=== PATIENT | male | born 1995 | race Caucasian/White ===

== ENCOUNTER 2017-10-03 11:21 | Emergency (ER) | payer OTHER ==
[~2017-10-03] VITALS: Ht 162.6 cm; Wt 64.9 kg
[2017-10-03 11:25] VITALS: Ht 162.6 cm; Wt 64.9 kg
[2017-10-03 14:07] VITALS: BP 103/46
== END 2017-10-03 14:05 | disposition home or self-care (01) ==
LOC: ED 11:21
DX: J11.1 Influenza due to unidentified influenza virus with other respiratory manifestations (principal); G43.909 Migraine, unspecified, not intractable, without status migrainosus
CPT/HCPCS: J2405; Q0162

== ENCOUNTER 2018-03-04 22:13 | Inpatient (IN) | payer OTHER ==
[~2018-03-04] VITALS: Ht 162.6 cm; Wt 59.0 kg
[2018-03-05 02:21] LABS: BASOPHIL % 0.2 % (0-2); PLATELET COUNT 217 x10^3mcL (130-400); RED CELL DISTRIBUTION WIDTH 12.7 % (11.5-14.5)
[2018-03-05 02:24] LABS: CALCIUM 9.5 mg/dL (8.5-10.1); CARBON DIOXIDE 30.4 mmol/L (21-32); CHLORIDE SERUM 102 mmol/L (98-107); CREATININE SERUM 0.8 mg/dL (0.7-1.3); GFR1 > 60 mL/min; GLUCOSE SERUM 126 mg/dL (74-106); POTASSIUM SERUM 3.5 mmol/L (3.5-5.1); SODIUM SERUM 138 mmol/L (136-145)
[2018-03-05 02:28] LABS: ALBUMIN 4.4 g/dL (3.4-5.0); ALKALINE PHOSPHATASE 90 U/L (46-116); ALT/SGPT 23 U/L (16-63); AMYLASE 44 U/L (25-115); AST/SGOT 17 U/L (15-37); BILIRUBIN TOTAL 0.76 mg/dL (0.20-1.00); LIPASE 181 IU/L (73-393); TOTAL PROTEIN, SERUM 7.9 g/dL (6.4-8.2)
[2018-03-05 03:23] VITALS: BP 112/52
[2018-03-05 04:09] LABS: CHOLESTEROL/HDL RATIO 3.2; MAGNESIUM 2.1 mg/dL (1.8-2.4); PHOSPHOROUS 4.5 mg/dL (2.5-4.9)
[2018-03-05 04:12] LABS: T3 TOTAL 1.08 ng/mL
[2018-03-05 04:41] LABS: FREE T4 1.01 ng/dL (0.76-1.46); FREE THYROXINE INDEX 2.6 ug/dL (1.4-4.5); T4(THYROXINE) 7.1 ug/dL (4.7-13.3)
[2018-03-05 06:02] VITALS: BP 106/58
[2018-03-05 08:04] LABS: UA SPECIFIC GRAVITY >=1.030 (1.005-1.035); microscopic required? YES; urine erythrocyte NEGATIVE (NEGATIVE)
[2018-03-05 08:18] LABS: AMPHETAMINE QUAL UR NONE DETECTED (NEG <=1000)
[2018-03-05] MEDS ORDERED: PSYLLIUM FIBE0.52 GM PO (12:06)
[2018-03-05 12:36] VITALS: BP 106/58
[2018-03-05 12:48] LABS: BASOPHIL % 0.4 % (0-2); PLATELET COUNT 187 x10^3mcL (130-400); RED CELL DISTRIBUTION WIDTH 12.9 % (11.5-14.5)
[2018-03-05 12:54] LABS: CALCIUM 8.3 mg/dL (8.5-10.1); CARBON DIOXIDE 27.4 mmol/L (21-32); CHLORIDE SERUM 109 mmol/L (98-107); CREATININE SERUM 0.8 mg/dL (0.7-1.3); GFR1 > 60 mL/min; GLUCOSE SERUM 86 mg/dL (74-106); POTASSIUM SERUM 4.1 mmol/L (3.5-5.1); SODIUM SERUM 144 mmol/L (136-145)
== END 2018-03-05 13:15 | disposition home or self-care (01) | DRG 247 ==
LOC: ED 22:13 → DU 03-05 02:18 → MU 03-05 11:05
PROVIDERS: Emergency Medicine; Family Medicine; Student in an Organized Health Care Education/Training Program
DX: K56.699 Other intestinal obstruction unspecified as to partial versus complete obstruction (principal); N17.0 Acute kidney failure with tubular necrosis; K21.9 Gastro-esophageal reflux disease without esophagitis; E78.5 Hyperlipidemia, unspecified; E86.0 Dehydration
CPT/HCPCS: 82962; 83880; 84439; J0780; J1885; J2765; J7030; Q0092; Q0162; Q9967

== ENCOUNTER 2018-12-15 00:28 | Emergency (ER) | payer OTHER ==
[~2018-12-15] VITALS: Ht 160 cm; Wt 62.1 kg
[~2018-12-15 00:28] MED LIST: PSYLLIUM FIBE0.52 GM PO
[2018-12-15 00:34] VITALS: Ht 160 cm; Wt 62.1 kg
[2018-12-15 03:12] VITALS: BP 122/71
== END 2018-12-15 03:12 | disposition home or self-care (01) ==
LOC: ED 00:28
DX: G44.209 Tension-type headache, unspecified, not intractable (principal)
CPT/HCPCS: J1885; Q0162

== ENCOUNTER 2019-04-30 23:32 | Inpatient (IN) | payer OTHER ==
[~2019-04-30] VITALS: Ht 167.6 cm; Wt 64.9 kg
[2019-04-30 23:37] VITALS: Ht 167.6 cm; Wt 64.9 kg
--- NOTE | 2019-05-01 00:11 | NUR ---
PT PRESENTS TO ED WITH C/O MUQ PAIN SINCE 6PM THIS EVENING. PT STTES THAT HE HAS A HISTORY OF BOWEL OBSTRUCTIOSNS HOWEVER WHEN HE USUALLY HAS BOWEL OBSTRUCTIONS HE IS UNABLE TO GO POOP. BUT THIS TIME HE IS STILL GOING POOP FINE. PT DENEIS ANY N/V/D/C AT THIS TIME. PT CONNECTED TO FULL CM, PULSE OX MONITORS. MOM AT BEDSIDE. PT AXOX 4. RESP ARE EQUAL AND UNLABORED. ABDOMEN IS SOFT/FLAT AND TENDER UPON PALPATION. PT APPEARS TO BE IN A LOT OF PAIN WITH AUDIBLE PANTING AND FIDGITING IN BED. AWAITING MSE AT THIS TIME
[2019-05-01 00:17] LABS: BASOPHIL % 0.2 % (0-2); PLATELET COUNT 196 x10^3mcL (130-400); RED CELL DISTRIBUTION WIDTH 12.8 % (11.5-14.5)
[2019-05-01 00:28] LABS: CALCIUM 9.6 mg/dL (8.5-10.1); CARBON DIOXIDE 32.5 mmol/L (21-32); CHLORIDE SERUM 103 mmol/L (98-107); GFR1 > 60 mL/min; GLUCOSE SERUM 105 mg/dL (74-106); POTASSIUM SERUM 3.9 mmol/L (3.5-5.1); SODIUM SERUM 144 mmol/L (136-145)
[2019-05-01 00:44] LABS: ALBUMIN 4.6 g/dL (3.4-5.0); ALKALINE PHOSPHATASE 81 U/L (46-116); ALT/SGPT 32 U/L (16-63); AST/SGOT 17 U/L (15-37); BILIRUBIN TOTAL 0.5 mg/dL (0.20-1.00); LIPASE 208 IU/L (73-393); TOTAL PROTEIN, SERUM 8.1 g/dL (6.4-8.2)
--- NOTE | 2019-05-01 01:58 | NUR ---
RECEIVED PT FROM ED, ACCOMPANIED BY NURSE. PT AOX4, DENIES BECK/DIZZINESS. PT C/O ABD PAIN, 8/10, SHARP/STABBING IN NATURE. PT REPORTS EATING 4 TACOS (GREASY) AT 5PM AND AT 9PM HE HAD PAIN. PT DRANK WATER SINCE IT USUALLY HELPS. WATER DID NOT HELP. AT 11:15 APPROX, PT REPORTS 10/10 PAIN, UNBEARABLE IN THE RT ABD, WITH ASSOCIATED NAUSEA. UNRELIEVED BY TRYING TO HAVE A BM/UNABLE TO VOMIT. PT REPORTS HAVING A BM YESTERDAY 04/30, NORMAL. DENIES N/V/D. ABD ROUND/FIRM. PT HAD TENDERNESS TO PALPATION TO THE LEFT ABD. PT REPORTS A PMH OF PREMATURE (BORN AT 5 MONTHS) WHICH RESULTED IN UNDERDEVELOPED BOWEL REQUIRING A "PLASTIC TUBE DOWN THROAT, STRAIGHT DOWN". PT UNABLE TO ELABORATE FURTHER SINCE IT WAS WHEN HE WAS A BABY. PT REPORTS HX OF SBO. PT REPORTS INTOLERANCE OF STARCHY/CARB RICH FOODS. PT DENIES ISSUES SWALLOW. RESP EVEN AND UNLABORED ON RA, DENIES SOB. IV SITE TO THE [facility], SALINE LOCKED AT THIS TIME. ALL COMFORT AND SAFETY MEASURES PROVIDED FOR, CALL LIGHT WITHIN REACH, BED IN LOWEST POSITION, WILL CONTINUE TO MONITOR.
[2019-05-01 02:21] VITALS: BP 119/77
[2019-05-01 02:24] LABS: PHOSPHOROUS 4.6 mg/dL (2.5-4.9)
--- NOTE | 2019-05-01 05:05 | NUR ---
PT RESTED IN INTERVALS DURING SHIFT, NO ACUTE CHANGES OCCURRING OVERNIGHT. PT DENIES HAVING A BOWEL MOVEMENT SINCE ADMISSION, PT REPORTS PAIN UNDER CONTROL AT THIS TIME. PT REMAINS NPO DURING SHIFT. IV SITE REMAINS PATENT TO LFA, NS @ 100ML/HR. ALL COMFORT AND SAFETY MEASURES PROVIDED FOR, CALL LIGHT WITHIN REACH, BED IN LOWEST POSITION, WILL CONTINUE TO MONITOR.
[2019-05-01 06:16] VITALS: BP 113/60
[2019-05-01 06:39] LABS: BASOPHIL % 0.3 % (0-2); PLATELET COUNT 174 x10^3mcL (130-400); RED CELL DISTRIBUTION WIDTH 12.9 % (11.5-14.5)
--- NOTE | 2019-05-01 07:15 | NUR ---
RECEIVED BEDSIDE REPORT FROM BODY ROLLING MACHINE TENDER NURSE AT THIS TIME. PATIENT RESTING COMFORTABLY IN BED. NO APPARENT DISTRESS OR DISCOMFORT NOTED. BREATHING EVEN AND UNLABORED. NO RESPIRATORY DISTRESS NOTED. PATIENT DENIES SHORTNESS OF BREATH. PATIENT DENIES CHEST PAIN/PRESSURE AT THIS TIME. IV PATENT AND INTACT. ALL QUESTIONS AND CONCERNS ADDRESSED. ALL NEEDS ATTENDED TO. WILL CONTINUE TO MONITOR
--- NOTE | 2019-05-01 07:34 | NUR ---
ENDORSED ALL CARE TO DAYSHIFT NURSE, NO ACUTE DISTRESS NOTED. ALL COMFORT AND SAFETY MEASURES PROVIDED FOR, ALL QUESTIONS AND CONCERNS ADDRESSED, CALL LIGHT WITHIN REACH, BED IN LOWEST POSITION.
[2019-05-01 09:15] VITALS: BP 120/69
[2019-05-01 10:44] LABS: UA SPECIFIC GRAVITY 1.025 (1.005-1.035); microscopic required? YES; urine erythrocyte NEGATIVE (NEGATIVE)
[2019-05-01 10:55] LABS: AMPHETAMINE QUAL UR NONE DETECTED (See below)
--- NOTE | 2019-05-01 10:59 | NUR ---
ALL MORNING MEDICATIONS ADMINISTERED. PATIENT TOLERATED WELL. NO ADVERSE EFFECTS NOTED. NO APPARENT DISTRESS OR DISCOMFORT NOTED. ALL NEEDS ATTENDED TO. WILL CONTINUE TO MONITOR
--- NOTE | 2019-05-01 11:13 | NUR ---
PATIENT AMBULATING HALLWAYS AT THIS TIME. TOLERATING ACTIVITY WELL. NO APPARENT DISTRESS OR DISCOMFORT NOTED. ALL NEEDS ATTENDED TO. WILL CONTINUE TO MONITOR
[2019-05-01 11:44] LABS: CALCIUM 8.8 mg/dL (8.5-10.1); CARBON DIOXIDE 25.3 mmol/L (21-32); CHLORIDE SERUM 106 mmol/L (98-107); CREATININE SERUM 0.9 mg/dL (0.7-1.3); GFR1 > 60 mL/min; GLUCOSE SERUM 96 mg/dL (74-106); PHOSPHOROUS 4.5 mg/dL (2.5-4.9); POTASSIUM SERUM 3.8 mmol/L (3.5-5.1); SODIUM SERUM 142 mmol/L (136-145)
--- NOTE | 2019-05-01 13:16 | NUR ---
DR LAZAR AT BEDSIDE TO REVIEW POC WITH PATIENT AT THIS TIME. ALL QUESTIONS AND CONCERNS ADDRESSED. ALL NEEDS ATTENDED TO. WILL CONTINUE TO MONITOR
--- NOTE | 2019-05-01 13:46 | NUR ---
PATIENT VOMITING AT THIS TIME. PATIENT MEDICATED WITH ZOFRAN PRN. NO ADVERSE EFFECTS NOTED. ALL NEEDS ATTENDED TO. WILL CONTINUE TO MONITOR
--- NOTE | 2019-05-01 16:58 | NUR ---
SPOKE TO DR WHITE REGARDING PATIENT VOMITING AT THIS TIME. INFORMED DR WHITE PATIENT HAS ZOFRAN IVP PRN ON HIS EMAR BUT MEDICATION ONLY WORKS FOR 2 HOURS BEFORE PATIENT IS VOMITING. REQUESTING REGLAN BE ORDERED TO BE INTERCHANGABLE WITH ZOFRAN WHEN PATIENT HAS NAUSEA/VOMITING. PER DR WHITE, HE WILL ORDER REGLAN IVP PRN. AWAITING ORDER AND WILL MEDICATE PATIENT WHEN AVAILABLE. ALL NEEDS ATTENDED TO. WILL CONTINUE TO MONITOR
[2019-05-01 17:21] VITALS: BP 105/55
--- NOTE | 2019-05-01 17:45 | NUR ---
PATIENT VOMITING AT THIS TIME. PATIENT MEDICATED WITH ZOFRAN PRN. PATIENT TOLERATED WELL. NO ADVERSE EFFECTS NOTED. ALL NEEDS ATTENDED TO. WILL CONTINUE TO MONITOR
--- NOTE | 2019-05-01 18:34 | NUR ---
PATIENT RESTING COMFORTABLY IN BED AT THIS TIME. NO APPARENT DISTRESS OR DISCOMFORT NOTED. IV PATENT AND INTACT. ALL QUESTIONS AND CONCERNS ADDRESSED. ALL NEEDS ATTENDED TO. SAFETY PRECAUTIONS MAINTAINED. WILL ENDORSE ALL CARE TO ALPINE GUIDE NURSE
--- NOTE | 2019-05-01 19:20 | NUR ---
RECEIVED PT RESTING IN BED, PT HAS INTERMITTENT VOMITING. AOX4, DENEIS BECK/DIZZINESS. MEDSURG PT, DENIES CP. PT HAD SMALL BOWEL FOLLOW THROUGH DEMONSTRATING SBO. PT HAS BEEN NPO ALL DAY. PT VOMITING CONTRAST. PROVIDED EDUATION IN REGARDS TO RISK/BENEFITS OF NGT. PT STILL REFUSING AT THIS TIME. WILL CONTINUE TO EDUCATE. IV SITE REMAINS PATENT TO LFA, NS @ 100ML/HR. NO REDNESS, SWELLING OR PAIN NOTED. ALL COMFORT AND SAFETY MEASURES PROVIDED FOR, CALL LIGHT WITHIN REACH, BED IN LOWEST POSITION, WILL CONTINUE TO MONITOR.
--- NOTE | 2019-05-01 19:45 | NUR ---
MEDICATED PT WITH REGLAN FOR INTERMITTENT NAUSEA + VOMITING. PT HAS SMALL BOWEL FLOLLOW THROUGH THIS AFTERNOON WHICH DEMONSTRATES SBO, PT VOMITING THE CONTRAST. PT VOMITING BILE YELLOW IN COLOR. EDUCATED PT IN REGARDS TO THE PURPOSE OF THE NG TUBE, ALTHOUGH PT STILL RESISTENT. FAMILY AT BEDSIDE AND UPDATED IN REGARDS TO PLAN OF CARE. FEMALE FAMILY MEMBER INSISTING PT ALLOW THE NG TUBE SINCE THATS THE APPROPRIATE TX FOR SBO. WILL CONTINUE TO PROVIDE EDUCATION AND MONITOR. CALL LIGHT WITHIN REACH, BED IN LOWEST POSITION, WILL CONTINUE TO MONITOR.
[2019-05-01 20:41] VITALS: BP 111/47
--- NOTE | 2019-05-01 23:15 | NUR ---
INSERTED 14 TOGOLESE NGT TO RT NARES, PT TOLERATED THE INSERTION FAIR. WILL ORDER STAT KUB TO VERIFY PLACEMENT. PT CALM AND COOPERATIVE WITH CARE AT THIS TIME. MOTHER REMAINING AT BEDSIDE.
[2019-05-02 05:06] VITALS: BP 116/66
--- NOTE | 2019-05-02 05:10 | NUR ---
PT RESTED IN INTERVALS DURING SHIFT, NO ACUTE CHANGES OCCURRING OVERNIGHT. PT NOW WITH NGT TO RT NARES 14 SRI LANKAN CONNECTED TO LOW INTERMITTENT SUCTION. TUBING OF NGT WITH DARK OUTPUT, HAS NOT REACH THE CANISTER FOR EMPTYING. UNABLE TO MEASURE OUTPUT D/T OUTPUT REMAINING IN TUBING. WILL ENDORSE COLOR AND SCANT AMOUNT FROM NGT AT THIS TIME. PT HAS NOT VOMITING SINCE NGT IN PLACE. PT HAS REMAINED NPO, IV SITE REMAINS PATENT TO LFA, NS @ 100ML/HR. NO REDNESS, SWELLING OR PAIN NOTED. ALL COMFORT AND SAFETY MEASURES PROVIDED FOR, CALL LIGHT WITHIN REACH, BED IN LOWEST POSITION, WILL CONTINUE TO MONITOR.
[2019-05-02 06:33] LABS: BASOPHIL % 0.3 % (0-2); PLATELET COUNT 153 x10^3mcL (130-400); RED CELL DISTRIBUTION WIDTH 13.1 % (11.5-14.5)
[2019-05-02 06:48] LABS: CALCIUM 8.2 mg/dL (8.5-10.1); CARBON DIOXIDE 23.7 mmol/L (21-32); CHLORIDE SERUM 109 mmol/L (98-107); CREATININE SERUM 0.9 mg/dL (0.7-1.3); GFR1 > 60 mL/min; GLUCOSE SERUM 93 mg/dL (74-106); POTASSIUM SERUM 3.6 mmol/L (3.5-5.1); SODIUM SERUM 145 mmol/L (136-145)
--- NOTE | 2019-05-02 07:42 | NUR ---
ENDORSED ALL CARE TO DAYSHIFT NURSE, NO ACUTE DISTRESS NOTED. ALL QUESTIONS AND CONCERNS ADDRESSED, CALL LIGHT WITHIN REACH, BED IN LOWEST POSITION.
--- NOTE | 2019-05-02 07:43 | NUR ---
RECEIVED HAND OFF REPORT FROM NIGHT NURSE. PATIENT LAYING SUPINE IN BED WITH NO COMPLAINTS. ALERT AND ORIENTED. WITH NG TO RIGHT NARE TO LOW INTERMITENT SUCTION. DARK DRAINAGE IN TUBE BUT NONE HAS REACHED SUCTION CANISTER. PATIENT REPORTS PASSING GAS BUT NO NEED FOR BOWEL MOVEMENT YET. IV TO LFA INFUSING WELL. CALL LIGHT WITHIN REACH, FAMILY IN ROOM. WILL CONTINUE TO MONITOR
[2019-05-02 08:59] VITALS: BP 111/60
--- NOTE | 2019-05-02 09:15 | NUR ---
PATIENT UNABLE TO TAKE PO MEDICAITON DUE TO SBO AND NG TUBE TO LIS. PATIENT COMPLAINING OF HEAD AND STOMACH PAIN. ADMINISTERED DILAUDID PER MAR. WILL REASSESS PAIN
--- NOTE | 2019-05-02 10:08 | NUR ---
ASSISTED PATIENT TO STAND AND URINATE. NO URGE TO HAVE BOWEL MOVEMENT YET
--- NOTE | 2019-05-02 12:30 | NUR ---
patient visualized sitting up at side of bed wth at [facility]. no complaints at this time. call light wihtinr each. will continue to monitor
--- NOTE | 2019-05-02 12:31 | NUR ---
PATIENT OBSERVED LAYING SUPINE IN BED, LIGHTS OFF WITH MOTHER AT BEDSIDE. PATIENT HAD NO COMPLAINTS AT THIS TIME. CALL LIGHT IS WITHIN REACH.
--- NOTE | 2019-05-02 13:23 | NUR ---
EDUCATED PATIENT ABOUT PURPOSE OF NGTUBE AND TREATMENT OF SMALL BOWEL OBSTRUCTION. DUE TO MEDICAL HISTORY PATIENT HAS FREQUIETNT BOWEL OBSTRUCTIONS. SO FAR 100 MLS OF DARK BLACK FLUID REMOVED VIA NG TUBE SUCTION. ADDITIONAL VISITOR AT BEDSIDE. CALL LIGHT WITHIN REACH
--- NOTE | 2019-05-02 14:59 | NUR ---
Initial Nutrition Assessment: (221-B) CARLA LEDESMA 24M Dx: SBO PMHx: Mult SBOs PSHX: Bowel surgery Labs: Cl 109 H, BUN 20 H, HCT 41 L Meds: Colace, Reglan, Zofran Diet: NPO (r/t SBO) PO intake since admission: 0% (NPO since admit 05/01) Ht: 66in Wt: 143# BMI: 23.1 Bed scale: 147.7# IBW: 142# %IBW: 101% UBW: 138# Age: 24 Food Allergies: NKFA Skin: Wally: 20 Edema: None noted GI: Dx SMO, pain to abd at times, reports passing gas but no BM yet Last BM: 04/30 Note (05/02): Noted NGT placed 05/01 overnight @2315. Visited pt bedside, spoke w/ pt and pt's mother. Pt states no c/o abd pain at this time. Pt has not eaten since admission, but states appetite is good, but understand he is not supposed to eat any foods right now; noted pt eating ice chips during interview. Pt states believes he should eat less greasy foods at home. Pt has no further questions at this time. Spoke w/ Dr Emanuel regarding diet order when started on PO diet, confirmed. Problem with: N/V/D/C: Constipated Problems with: Chewing: No Swallowing: No Current appetite: Good Recent wt change: per pt, +5# %wt change: 3.6% Vitamin/Supplement use: No Special diet at home: Regular Physical activity: N/A Nutrition education given (specify specific nutrition education and handout given): None given at this time. Food-drug interactions? Education given? None given at this time. Estimated Nutritional Needs Based on current body weight (65 kg) Energy: 0906-5312 kcal/day (35-40 kcal/kg for maintenance) Protein: 65-78 g/day (1.0-1.2 g/kg for maintenance) Fluid: 6417-9965 mL/day (1 mL/kcal) or per MD Nutrition Diagnosis: Altered GI function r/t SBO AEB NPO since admit, Bowel surgery, Hx multiple SBOs Intervention 1. When appropriate to start PO diet per MD, start pt on clear liquid diet, advance as tolerated to goal of low fat diet. Monitor/Evaluate Goal: PO intake at least 75% of estimated needs Monitor: PO intake, Labs, GI function F/U in 3-5 days as moderate risk 05/05-05/07
--- NOTE | 2019-05-02 14:59 | NUR ---
Recommendations: 1. When appropriate to start PO diet per MD, start pt on clear liquid diet, advance as tolerated to goal of low fat diet.
--- NOTE | 2019-05-02 15:36 | NUR ---
PATIENT COMPLAINING OF NAUSEA AND ABD PAIN. ADMINISTERED MEDICATIONS PER MAR. PATIENT COMPLAINING OF FEELING HOT. NO FEVER PRESENT. AC TURNED ON IN ROOM AND ICE PACK GIVEN FOR HEAD/NECK. FAMILY MEMBERS AT BEDSIDE. UPDATED FAMILY ON PLAN OF CARE AND CURENT TREATMENTS. CALL LIGHT WITHIN REACH
[2019-05-02 16:09] VITALS: BP 130/69
--- NOTE | 2019-05-02 16:44 | NUR ---
PATIENT COMPLAINGING OF NAUSEA. ADMINISTERED REGLAN PER DEC. PATIENT REQUESTED TO WALK IN HALWAY WITH FATHER. DISCONTECTED FROM SUCTION. NG TUBE PINNED TO GOWN. PATIENT UP AND WALKING IN FREDA;WAY. GAIT STEADY
--- NOTE | 2019-05-02 17:10 | NUR ---
PATIENT BACK IN BED AFTER AMBULATING IN HALLWAY. PATIENT DENIES COMPLAINTS. RECONECTED NG TUBE TO LIS. CALL LIGHT WITHIN REACH. PATIENT SITTING SEMI-FOWLERS IN BED. FATHER AT BEDSIDE
--- NOTE | 2019-05-02 18:26 | NUR ---
PATIENT COMPLAINING OF PAIN AT THIS TIME, SLIGHT NAUSEA. UNABLE TO MEDICATE PRN AT THIS TIME. PATIENT HELPED TO REPOSIITON, ICE CHIPS PROVIDED. CALL NILO GLASGOW, FATHER IN ROOM
--- NOTE | 2019-05-02 19:02 | NUR ---
RECEIVED PT FROM PREVIOUS SHIFT. AAO. ABLE TO MAKE NEEDS KNOWN. SPEECH CLEAR. MEDSURG. DENIES HEADACHE/DIZZINESS. C/O 9/10 ACHING ABD PAIN, WILL MEDICATE PER EMAR. NO C/O N/V. NG SECURED TO R NARE, LOW INTERMITTENT SUCTION, DARK RED/BROWN DRAINAGE IN COLLECTION CHAMBER. CALL LIGHT WITHIN REACH. SAFETY MEASURES IN PLACE. WILL CONTINUE TO MONITOR.
--- NOTE | 2019-05-02 19:51 | NUR ---
PT C/O 9/10 ACHING ABD PAIN, MEDICATED PER EMAR.
[2019-05-02 21:20] VITALS: BP 108/55
--- NOTE | 2019-05-02 23:22 | NUR ---
PT C/O 06/17 ABD PAIN, MEDICATED PER EMAR. PT DENIES N/V.
--- NOTE | 2019-05-03 06:08 | NUR ---
PT HAD RESTFUL NIGHT. NO CHANGES OVERNIGHT. ALL NEEDS MET AND ATTENDED TO. DENIES N/V. NG TUBE REMAINS SECURED TO R NARE, 150CC REMAINS IN COLLECTION CHAMBER, SAME AMOUNT BEGINNING OF SHIFT. IV SITE CDI, IVF INFUSING WELL, NO ERYTHEMA OR EDEMA. CALL LIGHT WITHIN REACH. SAFETY MEASURES IN PLACE. WILL ENDORSE CARE TO ONCOMING SHIFT.
--- NOTE | 2019-05-03 07:20 | NUR ---
BEDSIDE REPORT GIVEN TO LINDA GREER.
--- NOTE | 2019-05-03 07:30 | NUR ---
RECEIVED HAND OFF REPORT FROM NIGHT NURSE. PATIENT SLEEPING AT THIS TIME. NO OBVIOUS DISTRESS A TTHIS TIME. BREATHING STEADY. NG TUBE TO LEFT NARE SECURED WITH TAPE AND PINNED TO GOWN. DRAINAGE AT 150 IN CANISTER, NO CONVENTION PLANNER NIGHT. FAMILY MEMBER IN ROOM. CALL LIGHT WITHIN REACH
[2019-05-03 07:40] LABS: CALCIUM 8.6 mg/dL (8.5-10.1); CARBON DIOXIDE 25.9 mmol/L (21-32); CHLORIDE SERUM 106 mmol/L (98-107); CREATININE SERUM 0.8 mg/dL (0.7-1.3); GFR1 > 60 mL/min; GLUCOSE SERUM 75 mg/dL (74-106); POTASSIUM SERUM 3.4 mmol/L (3.5-5.1); SODIUM SERUM 142 mmol/L (136-145)
[2019-05-03 08:18] VITALS: BP 102/53
--- NOTE | 2019-05-03 08:19 | NUR ---
PATIENT COMPLAINING OF HEADACHE AND NAUSEA. ADMINISTERED MEDICATION PER DEC. NG TUBE CLAMPED PRIOR TO TYLENOL ADMINSITRATION AND WILL RELEASE AFTER 30MIN. PATIENT TOLERATING WELL. CALL LIGHT REMAINING WITHIN REACH
[2019-05-03 08:37] LABS: BASOPHIL % 0.1 % (0-2); PLATELET COUNT 150 x10^3mcL (130-400); RED CELL DISTRIBUTION WIDTH 12.7 % (11.5-14.5)
--- NOTE | 2019-05-03 09:23 | NUR ---
PATIENT LIS TURNED BACK ON PAIN REDUCED. SITTING UP IN BED WITH FAMILY AT BEDSIDE. CALL LIGHT WITHIN REACH
--- NOTE | 2019-05-03 10:50 | NUR ---
PATIENT RESTING IN BED AT THIS TIME, NO COMPLAINTS. CALL LIGHT WITHIN REACH, WILL CONTINUE TO MONITOR
--- NOTE | 2019-05-03 12:02 | NUR ---
DR CID. INFORMED DRS THAT DR LAZAR SAW PATIENT THIS AM AND RECOMMENDS TO HAVE NGTUBE REMOVED. WILL WAIT TO SEE IF ORDER IS PLACED.
--- NOTE | 2019-05-03 14:30 | NUR ---
DR CHURCH PUT IN ORDER FOR NGT REMOVAL, CLEAR LIQUID DIET TOLERATED AFTER REMOVAL. BROUGHT LAB WORK TO DR'S ATTENTION OF K+ 3.4. DR CHURCH ALREADY AWARE, NO NEW ORDERS AT THIS TIME. WILL CONTINUE TO MONITOR.
--- NOTE | 2019-05-03 14:43 | NUR ---
PER ORDER, REMOVED NG. PATIENT FRIGTENED OF PROCEDURE BUT COMPLIED, HEAD OF BED TO 90 DEGREES AND TUBE REMOVED IN FLUID MOTION. SLIGHT BLEEDING FROM RIGHT NOSTRIL. STOPPED AFTER 5 MIN OF PRESSURE. NO VOMITING. TOTAL OUTPUT FROM NG WAS MARKED ON CANISTER. 2OOML SINCE INSERTION. TUBE TIP INTACT. PATIENT PLACED ON CLEAR LIQUID DIET INSTRUCTED TO NOT EAT/DRINK TOO MUCH AT ONE TMIE. JUST SMALL SIPS RIGHT NOW. PATIENT VERBALIZED UNDERSTANDING. CALL LIGHT WITHIN REACH, WILL CONTINUE TO MONITOR
--- NOTE | 2019-05-03 15:32 | NUR ---
PATIENT TOLERATING NG REMOVAL WELL. DRANK SMALL SIPS OF CLEAR LIQUIDS. NO NAUSEA AT THIS TIME. WILL CONTINUE TO MONITOR CALL EMIL DAVIDSON REACH
[2019-05-03 16:55] VITALS: BP 93/53
--- NOTE | 2019-05-03 18:26 | NUR ---
PATIENT SITTIN IN BED AT THIS TIME WITH NO COMPLAINT OF PAIN. PATIENT DENIES N/V. STATED THAT HE HAD A BOWEL MOVEMENT AT 1800, SOFT AND REGULAR. WILL ENDORSE TO NIGHT NURSE
[2019-05-03 19:45] VITALS: BP 124/74
--- NOTE | 2019-05-03 19:45 | NUR ---
RECEIVED PT AWAKE ALERT AND VERBALLY RESPONSIVE.DENIES ABDOMINAL PAIN.NO N/V NOTED.ABDOMEN SOFT AND NON-DISTENDED.BM TODAY REPORTED.DENIES CHESTPAIN.BP 124/74 MMHG,HR 70.ENCOURAGED AMBULATION.WILL CONTINUE TO MONITOR.
--- NOTE | 2019-05-04 04:47 | NUR ---
PT SLEPT WELL ALL NIGHT WITH MOTHER AT BEDSIDE.DENIES ABDOMINLA PAIN.NO N/V NOTED.ALL NEEDS MET.WILL CONTINUE TO MONITOR.
[2019-05-04 05:43] VITALS: BP 118/62
[2019-05-04 06:38] LABS: BASOPHIL % 0.1 % (0-2); CALCIUM 8.5 mg/dL (8.5-10.1); CARBON DIOXIDE 28.5 mmol/L (21-32); CHLORIDE SERUM 108 mmol/L (98-107); CREATININE SERUM 0.9 mg/dL (0.7-1.3); GFR1 > 60 mL/min; GLUCOSE SERUM 85 mg/dL (74-106); PLATELET COUNT 152 x10^3mcL (130-400); POTASSIUM SERUM 3.6 mmol/L (3.5-5.1); RED CELL DISTRIBUTION WIDTH 12.8 % (11.5-14.5); SODIUM SERUM 145 mmol/L (136-145)
--- NOTE | 2019-05-04 07:52 | NUR ---
RECEIVED HAND OFF REPORT FROM NIGHT ALBA. NO ACUTE CHANGES LAST NIGHT. PATIENT FOUND SITTING SEMI-FOWLERS IN BED, AWAKE, ALERT IN NO APARENT DISTRESS. PATIENT DENEIS COMPLAINTS. STATED HE HASBEEN TOLERATING CLEAR LIQUIDS WELL. DENIES N/V. CALL LIGHT WITHIN REACH OF PATIENT, FAMILY MEMBER IN ROOM. WILL CONTINUE TO MONITOR
[2019-05-04 08:14] VITALS: BP 109/60
--- NOTE | 2019-05-04 09:46 | NUR ---
ADMINISTERED MEDICATION PER MAR. PATIENT REPORTED BOWEL MOVEMNT THIS MORNING. SOFT CONSISTANCY. REQUESTING TO TAKE STOOL SOFTENER NOW THAT SBO SEEMS TO HAVE RESOLVED. CALL LIGHT WITHIN REACH, FAMILY IN ROOM
--- NOTE | 2019-05-04 10:56 | NUR ---
PATIENT VISTED BY CARE TEAM. UPDATED PATIENT ON PLAN OF CARE. ADVANCING DIET AT [facility]. [facility] SOFT. PATIENT MAY BE DICHARGED THIS PM. PATIENT QUESTIONS ANSWERED BY DR CHURCH
[2019-05-04] MEDS ORDERED: ONDANSETRON4 M3 SL (15:42)
[2019-05-04 15:55] VITALS: BP 109/60
--- NOTE | 2019-05-04 16:56 | NUR ---
PATIENT DISCHARGE ORDERS IN. EFRAIN READY AND ASKING ABOUT DISCHARGE. REVEIW DISCHARGE INSTRUCTIONS WITH PATIENT WITH MOTHER PRESENT. MADE PATIENT AWARE OF FOLLOW UP APPOINTMENT, EFRAIN RECEIVED PRESCRIPTION AND OFF WORK ORDER. ANSWERED PATIENT QUESTIONS. REMOVED PATIENT IV. SITE WNL, CATH INTACT. PATIENT ASSITED OFF UNIT BY MONORAIL CAR OPERATOR WITH ALL BELONGING ON PERSON.
== END 2019-05-04 17:02 | disposition home or self-care (01) | DRG 247 ==
LOC: ED 23:32 → MU 05-01 01:16
PROVIDERS: Emergency Medicine; ADMIT General Practice
PROC: 0D9670Z Drainage of Stomach with Drainage Device, Via Natural or Artificial Opening (ICD-10-PCS; principal; 2019-05-02)
DX: K56.600 Partial intestinal obstruction, unspecified as to cause (principal); N17.0 Acute kidney failure with tubular necrosis; D72.829 Elevated white blood cell count, unspecified; G43.909 Migraine, unspecified, not intractable, without status migrainosus; E87.6 Hypokalemia
CPT/HCPCS: G0378; J1170; J1885; J2270; J2405; J2765; J3490; J7030; Q0092; Q9967

== ENCOUNTER 2019-08-21 16:18 | Inpatient (IN) | payer OTHER ==
[~2019-08-21] VITALS: Ht 160 cm; Wt 60.3 kg
[~2019-08-21 16:18] MED LIST changes: +ONDANSETRON4 M3 SL
[2019-08-21 16:33] VITALS: Ht 160 cm; Wt 60.3 kg
[2019-08-21 18:29] LABS: CALCIUM 9.7 mg/dL (8.5-10.1); CARBON DIOXIDE 32.2 mmol/L (21-32); CHLORIDE SERUM 99 mmol/L (98-107); CREATININE SERUM 0.9 mg/dL (0.7-1.3); GFR1 > 60 mL/min; GLUCOSE SERUM 96 mg/dL (74-106); POTASSIUM SERUM 3.8 mmol/L (3.5-5.1); SODIUM SERUM 139 mmol/L (136-145)
[2019-08-21 18:32] LABS: BASOPHIL % 0.4 % (0-2); PLATELET COUNT 198 x10^3mcL (130-400); RED CELL DISTRIBUTION WIDTH 12.6 % (11.5-14.5)
[2019-08-21 18:33] LABS: ALKALINE PHOSPHATASE 107 U/L (46-116); ALT/SGPT 36 U/L (16-63); AST/SGOT 18 U/L (15-37); BILIRUBIN TOTAL 0.65 mg/dL (0.20-1.00); LIPASE 162 IU/L (73-393)
[2019-08-21 18:38] LABS: TOTAL PROTEIN, SERUM 9.1 g/dL (6.4-8.2)
[2019-08-21 18:39] LABS: UA SPECIFIC GRAVITY 1.015 (1.005-1.035); microscopic required? YES; urine erythrocyte NEGATIVE (NEGATIVE)
[2019-08-21 18:49] LABS: AMPHETAMINE QUAL UR NONE DETECTED (See below)
[2019-08-21 21:49] VITALS: BP 116/69
[2019-08-22 05:14] VITALS: BP 111/60
[2019-08-22 06:40] LABS: BASOPHIL % 0.4 % (0-2); PLATELET COUNT 173 x10^3mcL (130-400); RED CELL DISTRIBUTION WIDTH 12.8 % (11.5-14.5)
[2019-08-22 07:06] LABS: CALCIUM 8.3 mg/dL (8.5-10.1); CARBON DIOXIDE 26.9 mmol/L (21-32); CHLORIDE SERUM 106 mmol/L (98-107); CREATININE SERUM 0.9 mg/dL (0.7-1.3); GFR1 > 60 mL/min; GLUCOSE SERUM 84 mg/dL (74-106); MAGNESIUM 2.1 mg/dL (1.8-2.4); PHOSPHOROUS 3.9 mg/dL (2.5-4.9); SODIUM SERUM 140 mmol/L (136-145)
[2019-08-22 08:48] VITALS: BP 108/66
[2019-08-22 10:55] VITALS: BP 108/66
== END 2019-08-22 11:46 | disposition home or self-care (01) | DRG 247 ==
LOC: ED 16:18 → MU 19:38
PROVIDERS: Emergency Medicine; ADMIT Internal Medicine
DX: K56.51 Intestinal adhesions [bands], with partial obstruction (principal); D72.829 Elevated white blood cell count, unspecified; Z53.29 Procedure and treatment not carried out because of patient's decision for other reasons; G43.909 Migraine, unspecified, not intractable, without status migrainosus; Z90.49 Acquired absence of other specified parts of digestive tract; Z79.899 Other long term (current) drug therapy
CPT/HCPCS: G0378; J1885; J2405; J7030; Q9967

== ENCOUNTER 2020-01-05 20:35 | Inpatient (IN) | payer OTHER ==
[~2020-01-05] VITALS: Ht 165.1 cm; Wt 63.1 kg
[2020-01-05 22:34] LABS: BASOPHIL % 0.3 % (0-2); PLATELET COUNT 175 x10^3mcL (130-400); RED CELL DISTRIBUTION WIDTH 13.4 % (11.5-14.5)
[2020-01-05 22:38] LABS: CALCIUM 10.1 mg/dL (8.5-10.1); CARBON DIOXIDE 30.1 mmol/L (21-32); CHLORIDE SERUM 102 mmol/L (98-107); CREATININE SERUM 0.9 mg/dL (0.7-1.3); GFR1 > 60 mL/min; GLUCOSE SERUM 110 mg/dL (74-106); POTASSIUM SERUM 4.2 mmol/L (3.5-5.1); SODIUM SERUM 141 mmol/L (136-145)
[2020-01-05 22:43] LABS: ALBUMIN 4.7 g/dL (3.4-5.0); ALKALINE PHOSPHATASE 78 U/L (46-116); ALT/SGPT 38 U/L (16-63); AST/SGOT 20 U/L (15-37); BILIRUBIN TOTAL 0.7 mg/dL (0.20-1.00); LIPASE 178 IU/L (73-393)
[2020-01-05 22:44] LABS: TOTAL PROTEIN, SERUM 8.4 g/dL (6.4-8.2)
[2020-01-05 23:02] LABS: microscopic required? YES; urine erythrocyte NEGATIVE (NEGATIVE)
[2020-01-06 00:33] LABS: T3 TOTAL 1.28 ng/mL
[2020-01-06 00:35] LABS: FREE T4 1.11 ng/dL (0.76-1.46); FREE THYROXINE INDEX 2.4 ug/dL (1.4-4.5); T4(THYROXINE) 6.6 ug/dL (4.7-13.3)
[2020-01-06 00:46] VITALS: BP 125/71
[2020-01-06 00:49] VITALS: Ht 165.1 cm; Wt 63.1 kg
[2020-01-06 05:56] VITALS: BP 118/61
[2020-01-06 06:32] LABS: AMPHETAMINE QUAL UR NONE DETECTED (See below)
[2020-01-06 07:04] LABS: BASOPHIL % 0.1 % (0-2); PLATELET COUNT 170 x10^3mcL (130-400)
[2020-01-06 07:33] LABS: CALCIUM 9.2 mg/dL (8.5-10.1); CARBON DIOXIDE 26.7 mmol/L (21-32); CHLORIDE SERUM 103 mmol/L (98-107); CREATININE SERUM 0.8 mg/dL (0.7-1.3); GFR1 > 60 mL/min; GLUCOSE SERUM 99 mg/dL (74-106); POTASSIUM SERUM 3.7 mmol/L (3.5-5.1); SODIUM SERUM 141 mmol/L (136-145)
[2020-01-06 07:35] VITALS: BP 116/75
[2020-01-06 12:50] VITALS: BP 112/66
[2020-01-06 17:08] VITALS: BP 106/56
[2020-01-06 20:28] VITALS: BP 128/69
[2020-01-07 05:30] VITALS: BP 106/56
[2020-01-07 06:45] LABS: CALCIUM 8.3 mg/dL (8.5-10.1); CARBON DIOXIDE 26.9 mmol/L (21-32); CHLORIDE SERUM 108 mmol/L (98-107); CREATININE SERUM 0.9 mg/dL (0.7-1.3); GFR1 > 60 mL/min; GLUCOSE SERUM 67 mg/dL (74-106); MAGNESIUM 1.7 mg/dL (1.8-2.4); PHOSPHOROUS 2.9 mg/dL (2.5-4.9); POTASSIUM SERUM 3.6 mmol/L (3.5-5.1); SODIUM SERUM 143 mmol/L (136-145)
[2020-01-07 06:51] LABS: BASOPHIL % 0.3 % (0-2); PLATELET COUNT 149 x10^3mcL (130-400)
[2020-01-07 08:46] VITALS: BP 97/45
[2020-01-07 12:58] VITALS: BP 109/61
[2020-01-07] MEDS ORDERED: MIRALAX17 GM PO (16:10)
[2020-01-07 17:50] VITALS: BP 104/65
[2020-01-07 20:22] VITALS: BP 104/65
[2020-01-07 20:55] VITALS: BP 113/61
== END 2020-01-07 21:10 | disposition home or self-care (01) | DRG 247 ==
LOC: ED 20:35 → DU 23:36 → MU 23:36
PROVIDERS: Emergency Medicine; Internal Medicine; ADMIT Internal Medicine
DX: K56.609 Unspecified intestinal obstruction, unspecified as to partial versus complete obstruction (principal); G43.909 Migraine, unspecified, not intractable, without status migrainosus; I10 Essential (primary) hypertension; Z68.24 Body mass index [BMI] 24.0-24.9, adult
CPT/HCPCS: 83880; 84439; G0378; J1885; J2060; J2405; J2765; J3010; J3475; J7030; J7042; Q0092; Q9967

== ENCOUNTER 2020-03-15 20:52 | Emergency (ER) | payer OTHER ==
[~2020-03-15] VITALS: Ht 162.6 cm; Wt 58.1 kg
[~2020-03-15 20:52] MED LIST changes: +MIRALAX17 GM PO
[2020-03-15 21:28] LABS: BASOPHIL % 0.4 % (0-2); PLATELET COUNT 172 x10^3mcL (130-400)
[2020-03-15 21:45] LABS: CALCIUM 9.7 mg/dL (8.5-10.1); CARBON DIOXIDE 32.1 mmol/L (21-32); CHLORIDE SERUM 100 mmol/L (98-107); CREATININE SERUM 0.9 mg/dL (0.7-1.3); GFR1 > 60 mL/min; GLUCOSE SERUM 114 mg/dL (74-106); POTASSIUM SERUM 4.3 mmol/L (3.5-5.1); SODIUM SERUM 139 mmol/L (136-145)
[2020-03-15 21:49] LABS: ALBUMIN 4.8 g/dL (3.4-5.0); ALKALINE PHOSPHATASE 92 U/L (46-116); ALT/SGPT 37 U/L (16-63); AMYLASE 56 U/L (25-115); AST/SGOT 17 U/L (15-37); BILIRUBIN TOTAL 0.48 mg/dL (0.20-1.00); LIPASE 191 IU/L (73-393); TOTAL PROTEIN, SERUM 8.3 g/dL (6.4-8.2)
[2020-03-15 23:33] VITALS: BP 119/68
== END 2020-03-15 23:33 | disposition home or self-care (01) ==
LOC: ED 20:52
DX: G89.29 Other chronic pain (principal); R10.84 Generalized abdominal pain
CPT/HCPCS: 36415; J3010; Q0092; Q0162

== ENCOUNTER 2020-04-10 00:10 | Emergency (ER) | payer OTHER ==
[~2020-04-10] VITALS: Ht 162.6 cm; Wt 58.1 kg
[2020-04-10 00:16] VITALS: Ht 162.6 cm; Wt 58.1 kg
[2020-04-10 05:30] VITALS: BP 101/56
== END 2020-04-10 05:31 | disposition home or self-care (01) ==
LOC: ED 00:10
DX: R10.84 Generalized abdominal pain (principal); G43.909 Migraine, unspecified, not intractable, without status migrainosus
CPT/HCPCS: Q0162